=== PATIENT | female | born 1985 | race American Indian/Alaskan Native ===

== ENCOUNTER 2016-11-10 01:31 | Emergency (ER) | payer OTHER ==
[2016-11-10 02:16] VITALS: BP 134/81
[2016-11-10] MEDS ORDERED: TYLENOL PO ONE (02:17)
[2016-11-10] MEDS ORDERED: TYLENOL ONE (02:18)
--- NOTE | 2016-11-10 02:59 | XRay Report ---
FINAL REPORT PROCEDURE: XR HIP 2-3V LT TECHNIQUE: Bilateral hip radiographs, 2 views each, including AP view of the pelvis. HISTORY: PAIN COMPARISON: No prior studies are available for comparison. FINDINGS: Fracture (s) and/or Dislocation(s): None . Joint space(s): Normal. Soft tissues: Normal. Bone mineralization: Normal. Foreign bodies: None. IMPRESSION: Normal Examination.
[2016-11-10] MEDS ORDERED: FLEXERIL PO ONE (08:14)
[2016-11-10] MEDS ORDERED: TORADOL IM ONE (08:14)
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
== END 2016-11-10 09:18 | disposition home or self-care (01) ==
LOC: ED 01:31
DX: M79.1 Myalgia (principal); F12.10 Cannabis abuse, uncomplicated; Z86.73 Personal history of transient ischemic attack (TIA), and cerebral infarction without residual deficits; V49.40XA Driver injured in collision with unspecified motor vehicles in traffic accident, initial encounter; Y93.89 Activity, other specified; Y99.8 Other external cause status; Y92.89 Other specified places as the place of occurrence of the external cause
CPT/HCPCS: 73502; 96372; 99283; J1885

== ENCOUNTER 2019-11-08 01:09 | Emergency (ER) | payer SELFPAY ==
[2019-11-08 02:25] VITALS: BP 129/70
--- NOTE | 2019-11-08 02:27 | Emergency Department Report ---
ED General Adult HPI - General Chief complaint: Hyperglycemia Stated complaint: LIGHTHEADED,BLURRED VISION,DIABETES PUI?: No Time Seen by Provider: 11/08/19 02:24 Source: patient Mode of arrival: Ambulatory Limitations: No Limitations - History of Present Illness Initial comments: Patient is a 38-year-old female that presents emergency room with complaints of uncontrolled diabetes, blurry vision and lightheadedness. Patient states that her sugar is high because she stopped taking her medications. Patient states that she has had blurry vision for approximately 4 weeks ever since she started taking metformin and Tradjenta for her diabetes. Patient states about 5 days ago she stopped taking the medications and her blurry vision lightheadedness stopped. Patient states that her sugar is high. Patient complains of polyuria. Patient states when she was taking the medications for her diabetes that the polyuria had stopped. Patient denies chest pain or shortness of breath. Patient denies syncope. Patient states she is seen normal now. Patient denies headache. Patient denies neck pain. Patient denies fever and chills. Patient denies recent travel. Patient denies recent international travel. Patient denies exposure to the novel coronavirus. Patient denies sick contacts. Patient denies fever and chills. Patient denies cough. Patient denies diarrhea. Patient denies coming in contact with anybody with symptoms of the novel coronavirus. -: Sudden Severity scale (0 -10): 0 Consistency: now resolved, other Improves with: rest Worsens with: medication Associated Symptoms: denies other symptoms. denies: confusion, chest pain, cough, diaphoresis, fever/chills, headaches, loss of appetite, malaise, nausea/vomiting, rash, seizure, shortness of breath, syncope, weakness - Related Data Previous Rx's Medication Instructions Recorded Last Taken Type Cyclobenzaprine [Flexeril 10 MG 10 mg PO QHS #24 tablet 11/10/16 Unknown Rx TAB] Ibuprofen [Motrin] 800 mg PO Q8HR PRN #30 tablet 11/10/16 Unknown Rx metFORMIN [Glucophage] 500 mg PO BID 7 Days #14 tablet 11/08/19 Unknown Rx Allergies Allergy/AdvReac Type Severity Reaction Status Date / Time No Known Allergies Allergy Verified 11/10/16 02:07 ED Review of Systems ROS: Stated complaint: LIGHTHEADED,BLURRED VISION,DIABETES Other details as noted in HPI Constitutional: denies: chills, fever Eyes: denies: eye pain, eye discharge, vision change ENT: denies: ear pain, throat pain Respiratory: denies: cough, shortness of breath, wheezing Cardiovascular: denies: chest pain, palpitations Endocrine: no symptoms reported, increased urine Gastrointestinal: denies: abdominal pain, nausea, diarrhea Genitourinary: denies: urgency, dysuria, discharge Musculoskeletal: denies: back pain, joint swelling, arthralgia Skin: denies: rash, lesions Neurological: denies: headache, weakness, paresthesias Psychiatric: denies: anxiety, depression Hematological/Lymphatic: denies: easy bleeding, easy bruising ED Past Medical Hx - Past Medical History Previous Medical History?: Yes Hx CVA: Yes Hx Diabetes: Yes Additional medical history: Morbid Obesity - Surgical History Past Surgical History?: No - Family History Family history: no significant - Social History Smoking Status: Never Smoker Substance Use Type: None - Medications Home Medications: Home Medications Medication Instructions Recorded Confirmed Last Taken Type Cyclobenzaprine [Flexeril 10 MG 10 mg PO QHS #24 tablet 11/10/16 Unknown Rx TAB] Ibuprofen [Motrin] 800 mg PO Q8HR PRN #30 tablet 11/10/16 Unknown Rx metFORMIN [Glucophage] 500 mg PO BID 7 Days #14 tablet 11/08/19 Unknown Rx ED Physical Exam - General Limitations: No Limitations General appearance: alert, in no apparent distress - Head Head exam: Present: atraumatic, normocephalic - Eye Eye exam: Present: normal appearance - ENT ENT exam: Present: mucous membranes moist - Neck Neck exam: Present: normal inspection - Respiratory Respiratory exam: Present: normal lung sounds bilaterally. Absent: respiratory distress - Cardiovascular Cardiovascular Exam: Present: regular rate, normal rhythm. Absent: systolic murmur, diastolic murmur, rubs, gallop - GI/Abdominal GI/Abdominal exam: Present: soft, normal bowel sounds - Extremities Exam Extremities exam: Present: normal inspection - Back Exam Back exam: Present: normal inspection - Neurological Exam Neurological exam: Present: alert, oriented X3 - Psychiatric Psychiatric exam: Present: normal affect, normal mood - Skin Skin exam: Present: warm, dry, intact, normal color. Absent: rash ED Course Vital Signs 11/08/19 11/08/19 11/08/19 01:32 02:05 02:15 Temperature 98.7 F Pulse Rate 94 H Respiratory 18 Rate Blood Pressure 142/89 129/70 Blood Pressure [Left] O2 Sat by Pulse 99 97 99 Oximetry 11/08/19 11/08/19 11/08/19 02:30 02:46 03:00 Temperature Pulse Rate Respiratory Rate Blood Pressure 129/70 129/70 Blood Pressure [Left] O2 Sat by Pulse 97 99 99 Oximetry 11/08/19 11/08/19 11/08/19 03:16 03:30 03:45 Temperature Pulse Rate Respiratory Rate Blood Pressure 129/70 129/70 129/70 Blood Pressure [Left] O2 Sat by Pulse 96 98 82 L Oximetry 11/08/19 11/08/19 11/08/19 04:00 04:16 04:30 Temperature Pulse Rate Respiratory Rate Blood Pressure 129/70 129/70 129/70 Blood Pressure [Left] O2 Sat by Pulse 98 99 99 Oximetry 11/08/19 04:42 Temperature Pulse Rate 87 Respiratory 15 Rate Blood Pressure Blood Pressure 129/70 [Left] O2 Sat by Pulse 100 Oximetry - Reevaluation(s) Reevaluation #1: Patient states She is not having blurred vision. Patient states She is essentially asymptomatic. I discussed all results and clinical findings with patient. I discussed plan of care with patient. Patient agrees with plan of care. Patient is stable for discharge. Patient will be discharged home. Patient given discharge instructions. Patient voiced understanding of discharge instructions. 11/08/19 04:19 11/08/19 05:37 ED Medical Decision Making - Lab Data Result diagrams: 11/08/19 03:18 11/08/19 03:18 - Medical Decision Making Patient is a 34-year-old female who presents for several weeks of blurry vision and uncontrolled diabetes and hyperglycemia. Patient was taking Tradjenta and metformin and developed blurry vision. Patient stopped the medication and resolved. Patient then developed lightheadedness. Patient states her lightheadedness resolved with rest here. Patient denies any symptoms prior to discharge. Patient instructed to restart metformin and hold off on Tradjenta until otherwise advised by her outpatient physicians who are managing her diabetes. Patient had labs done which were essentially unremarkable aside for hyperglycemia. - Differential Diagnosis Blurry vision, lightheadedness, hyperglycemia, diabetes, noncompliance Critical care attestation.: If time is entered above; I have spent that time in minutes in the direct care of this critically ill patient, excluding procedure time. 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 Patient to follow-up with pst manager in 2 to 3 days. Patient to eat a diabetic diet. Patient to monitor blood sugars. Patient to keep a blood sugar log. Patient to take blood sugar log to follow-up appointments. Patient to restart metformin. Patient to continue to hold Tradjenta until advised by her outpatient physician. Patient to rest. Patient to increase water. Patient to take meds as directed. Patient to return to the ER if condition worsens, changes or new symptoms arise. Prescriptions: metFORMIN [Glucophage] 500 mg PO BID 7 Days #14 tablet Referrals: AYSE BRITT MD [Primary Care Provider] - 2-3 Days Time of Disposition: 04:19
[2019-11-08 03:46] LABS: Hematocrit 37.5 % (30.3-42.9); Hemoglobin 12.4 gm/dl (10.1-14.3); Mean Corpuscular HGB Conc 33 % (30-34); Mean Corpuscular Volume 82 fl (79-97); Platelet Count 198 K/mm3 (140-440); Red Blood Count 4.58 M/mm3 (3.65-5.03); Red Cell Distribution Width 14.7 % (13.2-15.2)
[2019-11-08 04:02] LABS: Alanine Aminotransferase 11 units/L (7-56); Albumin 3.7 g/dL (3.9-5); BUN/Creatinine Ratio 16; Blood Urea Nitrogen 11 mg/dL (7-17); Calcium 9.3 mg/dL (8.4-10.2); Hemolysis Index 4
== END 2019-11-08 04:45 | disposition home or self-care (01) ==
LOC: ED 01:09
DX: E11.65 Type 2 diabetes mellitus with hyperglycemia (principal); R42 Dizziness and giddiness; H53.8 Other visual disturbances; E66.01 Morbid (severe) obesity due to excess calories; Z68.43 Body mass index [BMI] 50.0-59.9, adult; Z91.14 Patient's other noncompliance with medication regimen; Z79.899 Other long term (current) drug therapy; Z86.73 Personal history of transient ischemic attack (TIA), and cerebral infarction without residual deficits
CPT/HCPCS: 36415; 80053; 82962; 85027